=== PATIENT | male | born 1955 | race Caucasian/White ===

== ENCOUNTER 2023-11-05 14:40 | Emergency (ER) | payer MEDICARE, OTHER ==
[~2023-11-05] VITALS: Ht 182.9 cm; Wt 122.5 kg
[~2023-11-05 14:40] MED LIST: ALFU10TA10 PO; ASPI-605 PO; FINA5TAB3 PO; IBUP-1957 PO; METO-357 PO; SIMV-49 PO; [UNRECOGNIZED DRUG - CODE] PO
[2023-11-05] MEDS ORDERED: HYDR-3980 PO (17:31)
[2023-11-05 18:06] VITALS: BP 149/85; TEMP 98.2; O2SAT 97
== END 2023-11-05 18:09 | disposition home or self-care (01) ==
LOC: ER 14:40
DX: M79.672 Pain in left foot (principal); M77.32 Calcaneal spur, left foot; E88.810 Metabolic syndrome; I10 Essential (primary) hypertension; E78.5 Hyperlipidemia, unspecified; Z90.49 Acquired absence of other specified parts of digestive tract; Z79.899 Other long term (current) drug therapy; Z79.82 Long term (current) use of aspirin; Z79.1 Long term (current) use of non-steroidal anti-inflammatories (NSAID)
CPT/HCPCS: 73630; A4606; A4663